=== PATIENT | female | born 1995 | race Caucasian/White ===

== ENCOUNTER 2019-11-01 18:51 | Emergency (ER) | payer SELFPAY ==
[~2019-11-01] VITALS: Ht 160 cm; Wt 65.8 kg
[2019-11-01] MEDS ORDERED: KETOROLAC TROMETH 15 mg/ml 1ML VL IV ONE (20:15)
[2019-11-01] MEDS ORDERED: SODIUM CHLORIDE 0.9% 1,000 ML IV ONE ×2 (20:15→22:45)
[2019-11-01] MEDS ORDERED: ONDANSETRON HCL 4 MG/2 ML VIAL IV ONE (20:15)
[2019-11-01 20:48] LABS: Urine Bacteria NONE SEEN /hpf (None Seen); Urine Blood 2+ /uL (Negative); Urine Specific Gravity 1.023 (1.001-1.035); Urine WBC 39 /hpf (0 - 5)
[2019-11-01] MEDS ORDERED: MORPHINE SULFATE 4 MG/ML SYR/VIAL IV ONE (21:45)
[2019-11-01 23:07] LABS: Basophils # (auto) 0.1 uL; Basophils % (auto) 0.9 % (0.0-2.0); Eosinophils # (auto) 0.1 uL; Eosinophils % (auto) 1.4 % (0.0-7.0); Hemoglobin 14.1 g/dL (12.2-16.2); Lymphocytes # (auto) 2.1 uL; Lymphocytes % (auto) 23.3 % (10.0-50.0); Mean Corpuscular Hemoglobin 30.6 pg (28.0-32.0); Mean Corpuscular Hgb Conc. 34.3 g/dL (32.0-36.0); Mean Corpuscular Volume 89.3 fL (80.0-100.0); Monocytes # (auto) 0.4 uL; Monocytes % (auto) 4.8 % (0.0-12.0); Neutrophils # (auto) 6.2 uL; Neutrophils % (auto) 69.6 % (37.0-80.0); Platelet Count (auto) 286 10^3/uL (140-450); Red Blood Cells 4.59 10^6/uL (4.0-5.20); White Blood Cell 8.8 10^3/uL (4.4-10.8)
[2019-11-01 23:26] LABS: BUN/Creatinine Ratio 8.2; Calcium 8.3 mg/dL (8.5-10.1); Potassium 3.8 mmol/L (3.5-5.1)
[2019-11-01 23:28] LABS: Bilirubin, Total 1.4 mg/dL (0.2-1.0); Total Protein 7.5 g/dL (6.4-8.2)
[2019-11-02] MEDS ORDERED: cefTRIAXone 1GM/50ML D5W 50 ML IV ONE (00:15)
[2019-11-02] MEDS ORDERED: HYDROcodone-ACET 10/325MG TAB PO ONE (00:30)
[2019-11-02 01:00] VITALS: BP 112/65
== END 2019-11-02 01:48 | disposition home or self-care (01) ==
LOC: ER 18:51
DX: N12 Tubulo-interstitial nephritis, not specified as acute or chronic (principal); N39.0 Urinary tract infection, site not specified; R11.2 Nausea with vomiting, unspecified
CPT/HCPCS: 36415; 74176; 80053; 81001; 81025; 83605; 84702; 85025; 96361; 96365; 96375; 99284; J0696; J1885; J2270; J2405; J7030

== ENCOUNTER 2020-07-03 04:18 | Emergency (ER) | payer MEDICAID, OTHER ==
[~2020-07-03] VITALS: Ht 160 cm; Wt 63.5 kg
[2020-07-03 05:14] VITALS: BP 112/60
[2020-07-03 06:31] LABS: Basophils # (auto) 0.1 10 ^3/uL (0-0.2); Basophils % (auto) 0.6 % (0.0-2.0); Eosinophils # (auto) 0.1 10 ^3/uL (0-0.8); Eosinophils % (auto) 1.1 % (0.0-7.0); Hematocrit 42.6 % (36.0-46.0); Hemoglobin 14.7 g/dL (12.2-16.2); Lymphocytes # (auto) 2.3 10 ^3/uL (0.4-5.4); Lymphocytes % (auto) 20.7 % (10.0-50.0); Mean Corpuscular Hemoglobin 31.1 pg (28.0-32.0); Mean Corpuscular Hgb Conc. 34.5 g/dL (32.0-36.0); Mean Corpuscular Volume 90.1 fL (80.0-100.0); Monocytes # (auto) 0.7 10 ^3/uL (0-1.3); Neutrophils # (auto) 7.9 10 ^3/uL (1.6-8.6); Neutrophils % (auto) 71.6 % (37.0-80.0); Platelet Count (auto) 254 10^3/uL (140-450); Red Blood Cells 4.73 10^6/uL (4.0-5.20); Red Cell Distribution Width 12.8 % (11.8-14.3)
[2020-07-03 06:44] LABS: Calcium 9.1 mg/dL (8.5-10.1); Potassium 4.1 mmol/L (3.5-5.1)
[2020-07-03 06:46] LABS: BUN/Creatinine Ratio 16.2
[2020-07-03 06:49] LABS: Total Protein 7.5 g/dL (6.4-8.2)
== END 2020-07-03 07:42 | disposition left against medical advice (07) ==
LOC: ER 04:18
DX: R10.9 Unspecified abdominal pain (principal); Z53.21 Procedure and treatment not carried out due to patient leaving prior to being seen by health care provider
CPT/HCPCS: 36415; 74176; 80053; 85025

== ENCOUNTER 2024-03-12 17:22 | Emergency (ER) | payer MEDICAID ==
[~2024-03-12] VITALS: Ht 160 cm; Wt 68.9 kg
[~2024-03-12 17:22] MED LIST: IBUP-1456 PO; NITR-52 PO; PHEN95TA10 PO
[2024-03-12] MEDS: KETOROLAC TROMETH 60MG/2ML VIAL IM ONE (18:46)
[2024-03-12] MEDS: HYDROcodone-ACET 10/325MG TAB PO ONE (18:46)
[2024-03-12] MEDS: ONDANSETRON ODT 4 MG TAB PO ONE (18:46)
[2024-03-12 18:48] LABS: Urine Bacteria FEW /hpf (None Seen); Urine Blood Negative /uL (Negative); Urine Clarity Clear (Clear); Urine Color Yellow (Yellow); Urine Mucus FEW (None Seen); Urine Protein, UAD Negative (Negative); Urine Specific Gravity 1.035 (1.001-1.035); Urine Urobilinogen Normal (Negative); Urine WBC 1 /hpf (0 - 5); Urine pH 5.5 (5.0-9.0)
[2024-03-12 18:51] LABS: Basophils # (auto) 0.1 10 ^3/uL (0-0.2); Basophils % (auto) 0.7 % (0.0-2.0); Eosinophils # (auto) 0.1 10 ^3/uL (0-0.8); Eosinophils % (auto) 0.9 % (0.0-7.0); Hematocrit 40.8 % (36.0-46.0); Lymphocytes # (auto) 2.3 10 ^3/uL (0.4-5.4); Lymphocytes % (auto) 27.6 % (10.0-50.0); Mean Corpuscular Hemoglobin 30.5 pg (28.0-32.0); Mean Corpuscular Hgb Conc. 34.2 g/dL (32.0-36.0); Mean Corpuscular Volume 89.1 fL (80.0-100.0); Monocytes # (auto) 0.6 10 ^3/uL (0-1.3); Monocytes % (auto) 6.8 % (0.0-12.0); Neutrophils # (auto) 5.3 10 ^3/uL (1.6-8.6); Nucleated Red Blood Cells % 0.1 %; Red Blood Cells 4.58 10^6/uL (4.0-5.20); White Blood Cell 8.3 10^3/uL (4.4-10.8)
[2024-03-12 19:08] LABS: Alanine Aminotransferase 17 U/L (7-40); Albumin 4.9 g/dL (3.2-4.8); Alkaline Phosphatase 102 U/L (46-116); Anion Gap 7 (5-15); Aspartate Aminotransferase 14 U/L (13-40); BUN/Creatinine Ratio 13.2 (10.0-20.0); Bilirubin, Total 0.8 mg/dL (0.2-1.0); Blood Urea Nitrogen 10 mg/dL (9-23); Calcium 9.7 mg/dL (8.5-10.1); Carbon Dioxide 24 mmol/L (20-30); Chloride 107 mmol/L (98-107); Glucose 83 mg/dL (74-106); Potassium 3.7 mmol/L (3.5-5.1); Sodium 138 mmol/L (136-145); Total Protein 7.8 g/dL (5.7-8.2)
[2024-03-12] MEDS ORDERED: ACE3T PO (19:39)
[2024-03-12] MEDS ORDERED: IBUP-1455 PO (19:39)
[2024-03-12] MEDS ORDERED: CYCL-839 PO (19:39)
[2024-03-12 20:02] VITALS: BP 116/64; PULSE 67; RESP 20; TEMP 97.8; O2SAT 100
== END 2024-03-12 20:08 | disposition home or self-care (01) ==
LOC: ER 17:28
DX: M62.830 Muscle spasm of back (principal); Z87.442 Personal history of urinary calculi
CPT/HCPCS: 36415; 74176; 80053; 81001; 85025; 96372; 99285; J1885; Q0162

== ENCOUNTER 2024-08-20 18:30 | Emergency (ER) | payer MEDICAID ==
[~2024-08-20] VITALS: Ht 160 cm; Wt 66.5 kg
[~2024-08-20 18:30] MED LIST changes: +ACE3T PO; +CYCL-839 PO; +IBUP-1455 PO
--- NOTE | 2024-08-20 19:55 | DVH ---
EXAM: XY R FOOT 3 VIEW XRAY CLINICAL HISTORY: injury/px/swelling COMPARISON: XY R FOREARM XRAY on DOS: 11/28/23, XY R HAND 3 VIEW XRAY on DOS: 11/28/23 TECHNIQUE: XY R FOOT 3 VIEW XRAY Findings/Impression: 3 views of the right foot. There is no evidence of an acute fracture, dislocation, blastic, or lytic lesions. No radiopaque foreign bodies. Mild dorsal soft tissue edema.
[2024-08-20] MEDS: HYDROcodone-ACET 5/325MG TAB PO ONE (20:31)
[2024-08-20] MEDS: IBUPROFEN 800 MG TAB PO ONE (20:32)
[2024-08-20 20:50] VITALS: BP 114/64; PULSE 87; RESP 18; TEMP 98.6; O2SAT 97
[2024-08-20] MEDS ORDERED: IBUP-1456 PO (21:01)
--- NOTE | 2024-08-20 21:03 | ED.PDOC ---
Back pain HPI HPI Comments This is a 29-year-old female presents to the ED status post injury to right foot. Patient states earlier today a brick fell on the top of her right foot. She is complaining of sharp shooting pain to top of right foot 8/10 on pain scale. She denies numbness or weakness. Denies any other known injury. She states pain is worse with ambulating or applying pressure to the right side. Chief Complaint: Lower Extremity Time Seen by MD: 18:47 Primary Care Provider: CHELITA Sheriff Notes: Nurses Notes, Medications, Allergies Allergies: Coded Allergies: NO KNOWN ALLERGIES (Unverified , 11/01/19) Home Meds Active Scripts Ibuprofen (Ibuprofen) 800 Mg Tab, 1 TAB PO TID PRN for 5 Days, #15 TAB Prov:ELICIA SEGAL REFRACTORY SPECIALIST 08/20/24 Acetaminophen W/ Codeine (Tylenol W/Cod #3) 1 Tab Tb, 1 TAB PO Q6HP PRN, #15 TAB Prov:DHAVAL NIEVES PAC 03/12/24 Cyclobenzaprine Hcl (Cyclobenzaprine Hcl) 10 Mg Tab, 10 MG PO Q8HP PRN, #15 TAB Prov:DHAVAL NIEVES PAC 03/12/24 Ibuprofen Micronized (Ibuprofen) 800 Mg Tab, 800 MG PO Q8HP PRN, #20 TAB Prov:DHAVAL NIEVES PAC 03/12/24 Ibuprofen (Ibuprofen) 800 Mg Tab, 1 TAB PO TID, #30 TAB Prov:STELLA CRAFT PAC 11/29/23 Phenazopyridine Hcl (Azo Tabs) 95 Mg Tab, 95 MG PO TID PRN, #10 TAB Prov:DANICA ROLAND REFRACTORY SPECIALIST 03/04/23 Nitrofurantoin (Nitrofurantoin) 100 Mg Cap, 1 CAP PO BID for 7 Days, #14 CAP Prov:DANICA ROLAND REFRACTORY SPECIALIST 03/04/23 Mode of Arrival: Wheelchair Past Medical History PAST MEDICAL HISTORY: Denies Surgical History: Denies all surgeries [employer] History: Denies all [employer] Hx Family History Family History: Reviewed,noncontributory to illness Social History Smoker: Non-Smoker Alcohol: Denies ETOH Use Drugs: Denies Drug Use Lives In: Home Constitutional: denies: chills, diaphoresis, fatigue, fever, malaise, sweats, weakness, others EENTM: denies: blurred vision, double vision, ear bleeding, ear discharge, ear drainage, ear pain, ear ringing, eye pain, eye redness, hearing loss, mouth pain, mouth swelling, nasal discharge, nose bleeding, nose congestion, nose pain, photophobia, tearing, throat pain, throat swelling, voice changes, others Respiratory: denies: cough, hemoptysis, orthopnea, SOB at rest, shortness of breath, SOB with excertion, stridor, wheezing, others Cardiovascular: denies: chest pain, dizzy spells, diaphoresis, Dyspnea on exertion, edema, irregular heart beat, left arm pain, lightheadedness, palpitations, PND, syncope, others Gastrointestinal: denies: abdomen distended, abdominal pain, blood streaked bowels, constipated, diarrhea, dysphagia, difficulty swallowing, hematemesis, melena, nausea, poor appetite, poor fluid intake, rectal bleeding, rectal pain, vomiting, others Genitourinary: denies: abnormal vagina bleeding, burning, dyspareunia, dysuria, flank pain, frequency, hematuria, incontinence, pain, , vagina discharge, urgency, others Neurological: denies: dizziness, fainting, headache, left sided numbness, left sided weakness, numbness, paresthesia, pre-existing deficit, right sided numbness, right sided weakness, seizure, speech problems, tingling, tremors, weakness, others Musculoskeletal: reports: others (Right foot pain and swelling); denies: back pain, gout, joint pain, joint swelling, muscle pain, muscle stiffness, neck pain Integumetry: denies: bruises, change in color, change in hair/nails, dryness, laceration, lesions, lumps, rash, wounds, others Allergic/Immunocompromised: denies: Difficulty Healing, Frequent Infections, Hives, Itching, others Hematologic/Lymphatic: denies: anemia, blood clots, easy bleeding, easy brui sing, swollen glands, others Endocrine: denies: excessive hunger, excessive sweating, excessive thirst, ex cessive urination, flushing, intolerance to cold, intolerance to heat, unexplained weight gain, unexplained weight loss, others Physical Exam General Appearance: No Apparent Distress, Normal HEENT: Pharynx Normal Neck: Full Range of Motion, Non-Tender Respiratory: Lungs Clear, No Respiratory Distress, Normal Breath Sounds Cardiovascular: No Murmur, Normal Peripheral Pulses, Regular Rate/Rhythm Breast Exam: Deferred Gastrointestinal: Non Tender, Soft Genitalia: Deferred Pelvic: Deferred Rectal: Deferred Extremities: Normal capillary refill, Normal inspection, Normal range of motion, Non-tender, No pedal edema Musculoskeletal : Location: Right Extremity Location: Foot (Moderate edema dorsal aspect of right foot with noted trace of ecchymosis no noted crepitus or bony prominence or angulation. Positive pedal pulse no noted lacerations abrasions. Strength sensory and motion intact.) Apperance: Normal Neurologic: Alert, grain inspector II-XII nml as Tested, No Motor Deficits, Normal Affect, Normal Mood, No Sensory Deficits Cerebellar Function: Normal Reflexes: Normal Skin: Dry, Normal Color, Warm Lymphatic: No Adenopathy Was a procedure done? Was a procedure done?: No Back Pain Differential Dx Differential Diagnosis: Fracture X-Ray, Labs, Meds, VS Vital Signs Date Time Temp Pulse Resp B/P (MAP) Pulse Ox O2 Delivery O2 Flow Rate FiO2 08/20/24 20:50 98.6 87 18 114/64 (81) 97 98.6 08/20/24 20:50 87 18 97 Room Air 08/20/24 19:05 97.7 92 18 110/68 (82) 98 Current Medications Medications (Trade) Dose Ordered Sig/Franco Route Start Time Stop Time Status Last Admin Acetaminophen/ Hydrocodone Bitart ([place] 5/325MG Tab) 1 tab ONCE ONCE PO 08/20/24 20:15 08/20/24 20:17 DC 08/20/24 20:31 Ibuprofen (Motrin Tablet) 800 mg ONCE ONCE PO 08/20/24 20:15 08/20/24 20:17 DC 08/20/24 20:32 X-Ray, Labs, Meds, VS Comment Right foot x-ray negative for acute findings. Patient continues with difficulty weight-bearing on right foot and pain. We will place in boot or ortho shoe and crutch training. Script ibuprofen 800 mg 3 times a day as needed for pain. Advised to follow up with her PCP in 2-3 days as necessary consider repeat imaging in 7 days if pain and swelling continues. ER return precautions given. Patient agrees with discharge plan of care. Time of 1ST Reevaluation: 21:02 Reevaluation 1ST: Improved Patient Education/Counseling: Diagnosis, Treatment, Prognosis, Need For Follow Up Family Education/Counseling: Diagnosis, Treatment, Prognosis, Need For Follow Up Departure 1 Departure Time of Disposition: 21:02 Impression: Primary Impression: Contusion of right foot Qualified Codes: S90.31XA - Contusion of right foot, initial encounter Disposition: HOME / SELF CARE / HOMELESS Condition: Stable e-Prescriptions Ibuprofen (Ibuprofen) 800 Mg Tab 1 TAB PO TID PRN for 5 Days, #15 TAB Prov: ELICIA SEGAL 08/20/24 Discharged With: Spouse Critical Care Note Critical Care Time?: No Stability Stability form required: ELICIA Miranda Aug 20, 2024 21:03
== END 2024-08-20 21:14 | disposition home or self-care (01) ==
LOC: ER 18:30
DX: S90.31XA Contusion of right foot, initial encounter (principal); Z79.1 Long term (current) use of non-steroidal anti-inflammatories (NSAID); Z79.899 Other long term (current) drug therapy; W22.8XXA Striking against or struck by other objects, initial encounter; Y93.89 Activity, other specified; Y92.89 Other specified places as the place of occurrence of the external cause; Y99.8 Other external cause status
CPT/HCPCS: 73630